=== PATIENT | female | born 1950 | race Caucasian/White ===

== ENCOUNTER → 2017-03-10 | Outpatient (CLI) | payer MEDICARE, OTHER ==
[~2017-03-10] MED LIST: APIDRA100 U/ML SC; CENTRUM SILVER1 TA1 PO; CRESTOR5 MG PO; FLEXERIL5 MG PO; HYDROCODONE BIT1 T11 PO; LISINOPRIL10 MG PO; LISINOPRIL20 MG PO; METFORMIN1000 MG PO; NAPROSYN500 MG PO; NORCO 325 MG-51 TAB PO; NOVOLOG10 ML SC; VITAMIN C1000 M2 PO; ZITHROMAX Z PA250 MG PO
== END | disposition home or self-care (01) ==
LOC: US 14:44
DX: D25.2 Subserosal leiomyoma of uterus (principal); N95.0 Postmenopausal bleeding